=== PATIENT | male | born 1965 | race African-American/Black ===

== ENCOUNTER 2017-09-10 12:02 | Emergency (ER) | payer MEDICAID ==
[~2017-09-10] VITALS: Ht 190.5 cm; Wt 90.9 kg
[2017-09-10 14:15] VITALS: BP 129/81
== END 2017-09-10 14:28 | disposition home or self-care (01) ==
LOC: EMS 12:03
DX: S13.4XXA Sprain of ligaments of cervical spine, initial encounter (principal); I10 Essential (primary) hypertension; F17.210 Nicotine dependence, cigarettes, uncomplicated; F12.90 Cannabis use, unspecified, uncomplicated; V49.9XXA Car occupant (driver) (passenger) injured in unspecified traffic accident, initial encounter; Y93.89 Activity, other specified; Y92.89 Other specified places as the place of occurrence of the external cause; Y99.8 Other external cause status
CPT/HCPCS: 99283

== ENCOUNTER 2019-05-16 13:01 | Emergency (ER) | payer MEDICAID ==
[~2019-05-16] VITALS: Ht 190.5 cm; Wt 89.5 kg
[2019-05-16 13:05] VITALS: BP 158/78
== END 2019-05-16 13:16 | disposition left against medical advice (07) ==
LOC: EMS 13:02
DX: Z53.21 Procedure and treatment not carried out due to patient leaving prior to being seen by health care provider (principal)

== ENCOUNTER 2020-02-21 14:40 | Emergency (ER) | payer MEDICAID ==
[~2020-02-21] VITALS: Ht 188 cm; Wt 90.9 kg
[2020-02-21 16:36] VITALS: BP 147/75
== END 2020-02-21 16:38 | disposition home or self-care (01) ==
LOC: EMS 14:40
DX: S89.92XA Unspecified injury of left lower leg, initial encounter (principal); F17.210 Nicotine dependence, cigarettes, uncomplicated; F12.90 Cannabis use, unspecified, uncomplicated; W01.0XXA Fall on same level from slipping, tripping and stumbling without subsequent striking against object, initial encounter; Y93.89 Activity, other specified; Y92.89 Other specified places as the place of occurrence of the external cause; Y99.8 Other external cause status
CPT/HCPCS: 99406